=== PATIENT | female | born 1995 | race African-American/Black ===

== ENCOUNTER 2017-06-26 00:29 | Emergency (ER) | payer MEDICAID ==
[~2017-06-26] VITALS: Ht 162.6 cm; Wt 54.9 kg
[2017-06-26 00:35] VITALS: BP 132/91
[2017-06-26] MEDS ORDERED: NKM (00:36)
[2017-06-26] MEDS ORDERED: PENICILLIN V P500 MG PO (00:41)
[2017-06-26] MEDS ORDERED: IBUPROFEN600 MG ORAL (00:41)
--- NOTE | 2017-06-26 00:49 | Emergency Room Report ---
History of Present Illness General Chief Complaint: Toothache Source: Patient Present Illness [facility] The patient is a 21-year-old female who presented after increased left-sided facial swelling. The patient had gradual onset of symptoms. She denies any recent facial trauma. She reports having seen a dentist this morning and was advised that she would need oral antibiotics. The patient had previous cracked tooth that area. She denies any fever. Allergies: Coded Allergies: No Known Allergies (Unverified , 06/26/17) Patient History Past Medical History: see triage record Past Surgical History: none Last Menstrual Period: 06/16/17 Now: No Reviewed Nursing Documentation: PMH: Agreed; PSxH: Agreed Nursing Documentation-PMH Past Medical History: No Stated History Review of Systems All Other Systems: negative except mentioned in HPI Physical Exam Vital Signs Date Time Temp Pulse Resp B/P (MAP) Pulse Ox O2 Delivery O2 Flow Rate FiO2 06/26/17 00:33 98.7 92 16 141/101 94 Room Air 98.8 General Appearance: well appearing, no apparent distress, alert, GCS 15 Head: normocephalic, atraumatic ENT: hearing grossly normal, normal voice Neck: full range of motion, supple Respiratory: no respiratory distress, speaking full sentences Cardiovascular #1: normal inspection, normal peripheral pulses, regular rate, rhythm, no edema Gastrointestinal: normal inspection, normal bowel sounds, non tender, soft Musculoskeletal: no calf tenderness Neurologic: normal inspection, alert, oriented x3, responsive, normal gait Psychiatric: mood/affect normal Skin: no rash Medical Decision Making Diagnostic Impression: Primary Impression: Toothache Additional Impression: Dental caries ER Course Patient presented for toothache.Differential diagnosis included but was not limited to trigeminal neuralgia, dental abscess, dry socket, osteomyelitis, nerve injury. The patient was noted to have a benign exam.Urine test was negative. The patient appears to have mild infection The patient is advised to follow up with primary care doctor in 1-2 days. Patient is advised to return if any worsening condition or if any changes in status that are concerning. Labs Test 06/26/17 00:40 Urine HCG, Qualitative Negative (NEGATIVE) Last Vital Signs Date Time Temp Pulse Resp B/P (MAP) Pulse Ox O2 Delivery O2 Flow Rate FiO2 06/26/17 00:33 98.7 92 16 141/101 94 Room Air 98.8 Status: improved Disposition: HOME, SELF-CARE Condition: Stable Scripts Penicillin V Potassium* (PENVK*) 500 Mg Tablet 500 MG PO Q6H, #28 TAB 0 Refills Prov: Murtaza Shrestha 06/26/17 Ibuprofen* (MOTRIN*) 600 Mg Tablet 600 MG ORAL Q8H PRN for For Pain, #30 TAB 0 Refills Prov: Murtaza Shrestha 06/26/17 Referrals: NOT CHOSEN IPA/MD,REFERRING (PCP) Patient Instructions: Dental Pain Murtaza Shrestha June 26, 2017 00:49
[2017-06-26 01:00] VITALS: BP 132/91
== END 2017-06-26 01:02 | disposition home or self-care (01) ==
LOC: EMR 00:44
DX: K02.9 Dental caries, unspecified (principal)
CPT/HCPCS: 81025; 99283